=== PATIENT | female | born 1995 | race Caucasian/White ===

== ENCOUNTER 2018-06-04 21:56 | Emergency (ER) | payer SELFPAY ==
[~2018-06-04] VITALS: Ht 167.6 cm; Wt 69.6 kg
[2018-06-04 22:03] VITALS: Ht 167.6 cm; Wt 69.6 kg
[2018-06-05 01:25] VITALS: BP 126/80
== END 2018-06-05 01:25 | disposition home or self-care (01) ==
LOC: ED 21:56
DX: S13.9XXA Sprain of joints and ligaments of unspecified parts of neck, initial encounter (principal); X58.XXXA Exposure to other specified factors, initial encounter; Y93.89 Activity, other specified; Y92.89 Other specified places as the place of occurrence of the external cause; Y99.8 Other external cause status
CPT/HCPCS: J1885